=== PATIENT | male | born 1980 | race Two or more races ===

== ENCOUNTER 2019-12-20 10:02 | Emergency (ER) | payer SELFPAY ==
--- NOTE | 2019-12-20 10:34 | EDM.PDOC ---
ED HPI GENERAL MEDICAL PROBLEM - General Chief Complaint: Fever Stated Complaint: FEVER AND COUGH Time Seen by Provider: 12/20/19 10:28 - History of Present Illness INITIAL COMMENTS - FREE TEXT/NARRATIVE: 39-year-old male presents the emergency room with fever and cough. Approximately 7 days ago the patient was exposed to a friend of his in [place] that was tested and confirmed to have COVID 19. About 4 days ago the patient wa s noted to have a cough. He is also had felt feverish however has not been able to check his temperature during these episodes. He has not had any loss of smell or taste and has not had any nausea vomiting abdominal pain or diarrhea. She has not felt short of breath. He has had some nasal congestion in the mornings. He denies any chest pain or chest pressure. Patient was interviewed using a spanish interpreter/translator as he speaks [place]ish only he does understand simple phrases. With the interpreter for the deaf we did go over anticipated discharge instructions and the work-up that we will do here in the emergency room. - Related Data Allergies Allergy/AdvReac Type Severity Reaction Status Date / Time No Known Allergies Allergy Verified 12/20/19 10:29 Home Meds: Home Meds . [No Known Home Meds] 12/20/19 [History] ED ROS GENERAL - Review of Systems Review Of Systems: See Below Constitutional: Reports: No Symptoms HEENT: Reports: Rhinitis Respiratory: Reports: Cough. Denies: Shortness of Breath, Wheezing, Pleuritic Chest Pain, Sputum, Hemoptysis Cardiovascular: Denies: Chest Pain Endocrine: Reports: No Symptoms GI/Abdominal: Reports: No Symptoms : Reports: No Symptoms Musculoskeletal: Reports: No Symptoms Skin: Reports: No Symptoms Neurological: Reports: No Symptoms Psychiatric: Reports: No Symptoms ED EXAM, GENERAL - Physical Exam Exam: See Below Exam Limited By: Language Barrier (Patient was interviewed using a rubber boots and shoes repairer and he has basic Georgian skills) General Appearance: Alert, No Apparent Distress Eye Exam: Bilateral Eye: Normal Inspection Ears: Normal External Exam, Normal Canal, Hearing Grossly Normal, Normal TMs Nose: Normal Inspection, Normal Mucosa, No Blood Throat/Mouth: Normal Inspection, Normal Lips, Normal Teeth, Normal Gums, Normal Oropharynx, Normal Voice, No Airway Compromise Head: Atraumatic, Normocephalic Neck: Normal Inspection, Supple, Non-Tender, Full Range of Motion. No: Lymphadenopathy (L), Lymphadenopathy (R) Respiratory/Chest: No Respiratory Distress, Lungs Clear, Normal Breath Sounds Cardiovascular: Regular Rate, Rhythm, No Edema, No Murmur GI/Abdominal: Normal Bowel Sounds, Soft, Non-Tender, No Organomegaly, No Distention, No Abnormal Bruit, No Mass Back Exam: Normal Inspection. No: CVA Tenderness (L), CVA Tenderness (R) Extremities: Normal Inspection, No Pedal Edema Neurological: Alert, Oriented, Normal Cognition, Other (Subtle deficits could have been missed due to the language barrier) Psychiatric: Normal Affect, Normal Mood Skin Exam: Warm, Dry, Intact Course - Vital Signs Last Recorded V/S: Last Vital Signs Temp 36.3 C 12/20/19 10:23 Pulse 79 12/20/19 10:23 Resp 18 12/20/19 10:23 BP 133/89 12/20/19 10:23 Pulse Ox 96 12/20/19 10:23 - Orders/Labs/Meds Orders: Active Orders 24 hr Category Date Time Status CORONAVIRUS COVID-19 PCR [facility] Stat Lab 12/20/19 11:02 Ordered Labs: Laboratory Tests 12/20/19 12/20/19 12/20/19 Range/Units 11:17 11:17 11:17 WBC 5.24 (4.23-9.07) K/mm3 RBC 5.72 (4.63-6.08) M/mm3 Hgb 16.3 (13.7-17.5) gm/dl Hct 47.1 (40.1-51.0) % MCV 82.3 (79.0-92.2) fl MCH 28.5 (25.7-32.2) pg MCHC 34.6 (32.2-35.5) g/dl RDW Std Deviation 39.3 (35.1-43.9) fL Plt Count 235 (163-337) K/mm3 MPV 10.3 (9.4-12.3) fl Neutrophils % (Manual) 59 (40-60) % Band Neutrophils % 0 (0-10) % Lymphocytes % (Manual) 32 (20-40) % Atypical Lymphs % 0 % Monocytes % (Manual) 7 (2-10) % Eosinophils % (Manual) 2 (0.8-7.0) % Basophils % (Manual) 0 L (0.2-1.2) Platelet Estimate Adequate RBC Morph Comment Normal Sodium 139 (136-145) mEq/L Potassium 3.9 (3.5-5.1) mEq/L Chloride 103 (98-107) mEq/L Carbon Dioxide 28 (21-32) mEq/L Anion Gap 11.9 (5-15) BUN 13 (7-18) mg/dL Creatinine 1.2 (0.7-1.3) mg/dL Est Cr Clr Drug Dosing 76.06 mL/min Estimated GFR (MDRD) > 60 (>60) mL/min BUN/Creatinine Ratio 10.8 L (14-18) Glucose 107 H (74-106) mg/dL Calcium 9.1 (8.5-10.1) mg/dL Ferritin 189 (26-388) ng/ml Total Bilirubin 0.6 (0.2-1.0) mg/dL AST 37 (15-37) U/L ALT 98 H (16-63) U/L Alkaline Phosphatase 76 (46-116) U/L C-Reactive Protein 0.3 (<1.0) mg/dL Total Protein 7.4 (6.4-8.2) g/dl Albumin 4.0 (3.4-5.0) g/dl Globulin 3.4 gm/dL Albumin/Globulin Ratio 1.2 (1-2) - Re-Assessments/Exams Free Text/Narrative Re-Assessment/Exam: 12/20/19 12:37 Chest x-ray done that is unremarkable ferritin is normal chemistries otherwise normal CBC appears normal no bandemia no lymphopenia. COVID test is otherwise pending. However, his history is suspicious for possible coinfection when we had the rubber boots and shoes repairer discussing this with the patient the patient was informed in no uncertain terms that he regardless of the work-up he would need to stay in isolation for 14 days the patient understands this. At this time his O2 saturation is vital signs are stable and the patient is otherwise doing well. He will be discharged. Departure - Departure Time of Disposition: 12:38 Disposition: Home, Self-Care 01 Clinical Impression: COVID-19 determined by clinical diagnostic criteria - Discharge Information Referrals: PCP,None [Primary Care Provider] - Forms: ED Department Discharge Additional Instructions: Return to the emergency room with any questions problems or worsening symptoms. Stay in isolation for 72 hours after the fever stops and after you have stopped using Tylenol or ibuprofen or any other medication for discomfort and fever. Sepsis Event Note (ED) - Focused Exam Vital Signs: Vital Signs Temp Pulse Resp BP Pulse Ox 12/20/19 10:23 36.3 C 79 18 133/89 96 - My Orders Last 24 Hours: My Active Orders 12/20/19 11:02 CORONAVIRUS COVID-19 PCR [facility] Stat - Assessment/Plan Last 24 Hours: My Active Orders 12/20/19 11:02 CORONAVIRUS COVID-19 PCR [facility] Stat
--- NOTE | 2019-12-20 11:59 | CR ---
Chest: Portable view of the chest was obtained. Heart size and mediastinum are normal. Lungs are clear with no acute parenchymal change. Bony structures are grossly intact. Impression: 1. Nothing acute is appreciated on portable chest x-ray. Diagnostic code #1 This report was dictated in MDT
== END 2019-12-20 13:10 | disposition home or self-care (01) ==
LOC: JD.ED 10:02
DX: Z20.828 Contact with and (suspected) exposure to other viral communicable diseases (principal)
CPT/HCPCS: 36415; 71045; 71045-26; 80053; 82728; 85007; 85027; 86140; 99282; 99283-25; U0002